=== PATIENT | female | born 2000 | race Two or more races ===

== ENCOUNTER 2024-06-18 17:00 | Emergency (ER) | payer MEDICAID, SELFPAY ==
[2024-06-18 18:00] VITALS: BP 124/81; PULSE 79; RESP 18; TEMP 36.9; O2SAT 99; BMI 26.0
--- NOTE | 2024-06-18 18:30 | EDNOTE_ITS ---
ED Skin Abcess FB-RME/HPI General Chief complaint: Skin/Abscess/Foreign Body Stated complaint: FACIAL SCALING AROUND MOUTH; BRUISE LEFT HAND Time Seen by Provider: 06/18/24 18:23 Arrival date/time: 06/18/24 17:00 24F with no significant PMH presents to ED with non-itchy rash around mouth. Separately patient has a bruise on her L hand and wants to be tested for DM. Limitations: no limitations Related Data Previous Rx's ?Medication ?Instructions ?Recorded hydrocortisone 2.5 % topical cream 1 applic topical BI D PRN rash 06/18/24 #28.35 grams Allergies Allergy/AdvReac Type Severity Reaction Status Date / Time No Known Allergies Allergy Verified 06/18/24 17:04 Review of Systems Review of Systems Systems Reviewed: All systems reviewed, normal except as documented Constitutional Constitutional: Reports system reviewed and no additional complaints, except as documented, Denies fever(s) and Denies headache(s) ENT Ears, Nose, Mouth, and Throat: Denies disequilibrium and Denies headache(s) Cardiovascular Cardiovascular: Reports system reviewed and no additional complaints, except as documented, Denies chest pain and Denies dyspnea Respiratory Respiratory: Reports system reviewed and no additional complaints, except as documented, Denies cough and Denies dyspnea Gastrointestinal Gastrointestinal: Reports system reviewed and no additional complaints, except as documented, Denies abdominal pain, Denies nausea and Denies vomiting Integumentary/Breasts Skin/Breast: Reports as per HPI and Reports rash Neurologic Neurologic: Reports system reviewed and no additional complaints, except as documented, Denies confusion, Denies disequilibrium and Denies headache(s) Psychiatric Psychiatric: Denies confusion Past Medical History Social History SMOKING STATUS: Never smoker ED Exam General Limitations: Present no limitations General appearance: Present alert and in no apparent distress Head Head exam: Present atraumatic Eye Eye exam: Present normal appearance, PERRL and EOMI ENT ENT exam: Present normal exam, normal oropharynx and mucous membranes moist Neck Neck exam: Present normal inspection, full ROM and trachea midline Chest Chest inspection: Present normal inspection and symmetric chest wall rise Respiratory Respiratory exam: Present normal lung sounds bilaterally Cardiovascular Cardiovascular exam: Present regular rate, normal rhythm and normal heart sounds Abdominal Exam Abdominal exam: Present soft and normal bowel sounds Extremities Exam Extremities exam: Present full ROM Expanded Upper Extremity Exam Hand exam: Present full ROM and ecchymosis (L) Back Exam Back exam: Present normal inspection and full ROM Neurological Exam Neurological exam: Present alert, oriented X3 and CN II-XII intact Psychiatric Psychiatric exam: Present normal affect and normal mood Skin Skin exam: Present warm, dry, intact, normal color and rash Course Quality Measures none Vital Signs Vital signs: Vital Signs Temperature 98.5 F 06/18/24 18:00 Pulse Rate 79 06/18/24 18:00 Respiratory Rate 18 06/18/24 18:00 Blood Pressure 124/81 06/18/24 18:00 Pulse Oximetry (%) 99 06/18/24 18:00 Oxygen Delivery Method Room Air 06/18/24 18:00 O2 at 99% on RA and WNLs Skin / Abscess / Foreign Body MDM Narrative MDM Narrative:: 24F with no significant PMH presents to ED with non-itchy rash around mouth. Separately patient has a bruise on her L hand and wants to be tested for DM. Physical exam reveals scaling rash bilaterally around mouth, not affecting lips. Bruise on L hand. Patient is afebrile, calm, and alert. Likely dermatitis-related rash. Straightening Press Operator given about DM testing. Patient data External records reviewed:: None Clinical information provided by:: patient Social determinants that could affect healthcare access:: none Patient has the following chronic illnesses:: none How is presenting disease/condition affected by chronic disease/condition?: no chronic disease Evaluation data The following diagnostics were reviewed and interpreted by me:: other (specify) (none) Lab and/or radiology exams considered but not ordered:: not ordered Interpretation Summary: n/a Medications / Prescriptions Medications or Prescriptions considered but not ordered:: not ordered Medication administrations:: n/a Consultations Consultation(s) initiated? (list below): No Diagnosis Skin/Abscess Differential Diagnosis: abscess of skin or subcutaneous tissue, viral exanthem, dermatophytosis, urticaria, herpes zoster, allergic reaction to drug, cellulitis, eczema, insect bites, impetigo, contact dermatitis and other (bruise) Most likely diagnosis given after review of the tests above:: dermatitis and bruise Admission Indicated Admission indicated?: not indicated Admission Request Was there a request for admission?: No Disposition Plan Disposition Plan: Discharge Discharge Attestation Discharge Attestation: The patient and all family members were given an opportunity to ask questions and understood the discharge instructions. Discharge instructions specifically effects, indications for sooner follow up or return to the emergency department, and the expected course of current diagnosis. Patient condition: Stable Discharge Plan Plan Patient Disposition: HOME (Self Care) Discharge Disposition comment: Stable Prescriptions/Referrals Prescriptions/Med Rec: New hydrocortisone 2.5 % cream 1 applic topical BID PRN (Reason: rash) Qty: 28.35 0RF Rx Instructions: Do not use more than 2 weeks at a time. Problem List Clinical Impression: Dermatitis, Bruise Patient/Caregiver Discharge Instructions Education Materials: ED Dermatitis Non Specific Rash Additional Instructions: Please follow-up with PCP within 24-48 hours and return immediately if symptoms worsen. Print Language: Citizen Of [place] Stand Alone Forms: Patient Portal Info Letter FEDERICA/CHEYENNE Supervising Physician FEDERICA/CHEYENNE Supervising Physician: Dr. Stahl
== END 2024-06-18 18:32 | disposition home or self-care (01) ==
LOC: SERX 18:37
PROVIDERS: Emergency Provider Emergency Medicine
DX: L30.9 Dermatitis, unspecified (principal); S00.532A Contusion of oral cavity, initial encounter; S60.222A Contusion of left hand, initial encounter; X58.XXXA Exposure to other specified factors, initial encounter
CPT/HCPCS: 99281